=== PATIENT | female | born 1955 | race Caucasian/White ===

== ENCOUNTER 2016-12-02 21:24 | Emergency (ER) | payer BC ==
[~2016-12-02] VITALS: Ht 152.4 cm; Wt 73.5 kg
--- NOTE | 2016-12-02 21:55 | NUR ---
61/F BIB SELF FOR RIGHT SIDED NECK PAIN 09/15 SINCE 1100 AM. PT DENIES SOB OR CHEST PAIN. AMBULATED TO ROOM 8. RR EVEN AND UNLABORED. AWAITING PROVIDER EVALUATION.
[2016-12-02] MEDS ORDERED: ACETAMINOPHEN ES 500 MG TABLET ONE (22:40)
[2016-12-02 22:56] VITALS: BP 147/79
--- NOTE | 2016-12-02 22:56 | NUR ---
Patient discharged to home in stable condition. Written and verbal after care instructions given. Patient verbalizes understanding of instruction. PT ambulatory with a steady gait VITAL SIGNS WITHIN NORMAL LIMITS.
== END 2016-12-02 22:57 | disposition home or self-care (01) ==
LOC: ER 21:24
DX: R59.1 Generalized enlarged lymph nodes (principal); J45.909 Unspecified asthma, uncomplicated
CPT/HCPCS: 99281; A4606; Z7502; Z7610